=== PATIENT | male | born 1990 | race Caucasian/White ===

== ENCOUNTER 2017-06-15 21:20 | Emergency (ER) | payer OTHER ==
[2017-06-15] MEDS ORDERED: solu-MEDROL 125 MG IV ONE (21:29)
[2017-06-15] MEDS ORDERED: PROVENTIL 2.5 MG/3 ML NEB IH ONE ×2 (21:29→21:32)
[2017-06-15] MEDS ORDERED: Lactated Ringers 1,000 ML IV ONE ×3 (21:32→22:49)
[2017-06-15] MEDS ORDERED: ROCEPHIN 1 Gm-D5w 50 ml Bag** 1 G/50 ML IVPB IV STA (21:34)
[2017-06-15] MEDS ORDERED: Zithromax 500 MG/ 250 ML NaCl Premix 500 MG/250 ML IVPB IV STA (21:35)
--- NOTE | 2017-06-15 21:36 | ERPHSYRPT ---
- History of Present Illness Time Seen by Provider: 06/15/17 21:30 Source: patient Exam Limitations: clinical condition Patient Subjective Stated Complaint: shortness of breath x3-4 days; increasingly worse today; also states its hard to take a deep breath dt his chest feeling tight with inhalation Triage Nursing Assessment: pt ambulated to room per self; breathing slightly labored with activity; skin p, w, and d; a&o x3; no other distress noted at this time. Physician History: PATIENT WITH A HISTORY OF ASTHMA, COMPLAINS OF A PRODUCTIVE COUGH, YELLOW SPUTUM ASSOCIATED WITH DYSPNEA, DIFFICULTY BREATHING, OVER THE PAST 3 DAYS. UNSURE OF FEVER OR CHILLS. Timing/Duration: day(s) Activities at Onset: none Severity of Dyspnea-Max: moderate Severity of Dyspnea-Current: moderate Possible Cause: occasional episodes Modifying Factors: Improves With: coughing, exertion Associated Symptoms: cough, productive cough, tightness International travel in last 2 weeks: No Allergies/Adverse Reactions: egg Allergy (Verified 09/08/14 16:41) Horse/Equine Containing Products Allergy (Verified 09/08/14 16:41) Home Medications: Albuterol 2.5 mg/0.5 ml [PROVENTIL Solution 2.5 MG/0.5 ML] 1 neb IH Q4H PRN PRN 05/03/14 [History] Hx Tetanus, Diphtheria Vaccination/Date Given: No Hx Influenza Vaccination/Date Given: No Hx Pneumococcal Vaccination/Date Given: No Immunizations Up to Date: No - Review of Systems Constitutional: No Fever, No Chills Eyes: No Symptoms Ears, Nose, & Throat: No Symptoms Respiratory: Cough, Dyspnea, Dyspnea on Exertion (ABAD) Cardiac: No Symptoms, No Chest Pain, No Edema, No Syncope Abdominal/Gastrointestinal: No Symptoms, No Abdominal Pain, No Nausea, No Vomiting, No Diarrhea Genitourinary Symptoms: No Symptoms, No Dysuria Musculoskeletal: No Symptoms, No Back Pain, No Neck Pain Skin: No Rash Neurological: No Dizziness, No Focal Weakness, No Sensory Changes Psychological: No Symptoms Endocrine: No Symptoms All Other Systems: Reviewed and Negative - Past Medical History Pertinent Past Medical History: Yes Neurological History: No Pertinent History ENT History: No Pertinent History, Other Cardiac History: No Pertinent History Respiratory History: Asthma Endocrine Medical History: No Pertinent History Musculoskeletal History: Fractures GI Medical History: No Pertinent History History: No Pertinent History Psycho-Social History: No Pertinent History Male Reproductive Disorders: No Pertinent History Other Medical History: NASAL FRACTURE - Past Surgical History Past Surgical History: Yes Neuro Surgical History: No Pertinent History Cardiac: No Pertinent History Respiratory: No Pertinent History Gastrointestinal: No Pertinent History Genitourinary: No Pertinent History Musculoskeletal: No Pertinent History Male Surgical History: Testicular Surgery Other Surgical History: SHOULDER/NOSE - Social History Smoking Status: Never smoker Exposure to second hand smoke: No Drug Use: none Patient Lives Alone: No - Nursing Vital Signs Nursing Vital Signs: Initial Vital Signs Temperature 99 F 06/15/17 21:22 Pulse Rate 120 H 06/15/17 21:22 Respiratory Rate 24 06/15/17 21:22 Blood Pressure 147/106 06/15/17 21:22 O2 Sat by Pulse Oximetry 96 06/15/17 21:22 Pain Scale Pain Intensity 7 - Physical Exam General Appearance: mild distress, alert Eye Exam: PERRL/EOMI Neck Exam: normal inspection, supple Respiratory Exam: diminished breath sounds, wheezing (TERMINAL EXPIRATORY WHEEZES) Cardiovascular/Chest Exam: normal heart sounds, regular rate/rhythm Abdominal/Gastrointestinal Exam: soft, No tenderness, No distention, No mass Extremity Exam: non-tender, normal range of motion, normal inspection, no calf tenderness, no pedal edema Peripheral Pulses Exam: carotid (R): 2+, carotid (L): 2+, femoral (R): 2+, femoral (L): 2+, dorsalis-pedis (R): 2+, dorsalis-pedis (L): 2+ Neurologic Exam: alert, oriented x 3, cooperative, 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, sensation nml, No motor deficits Skin Exam: normal color, warm, No dry SpO2 Interpretation: normal SpO2: 96 Oxygen Delivery: Room Air - Course EKG Interpreted by Me: RATE, Sinus Rhythm, Sinus Tach, NORMAL AXIS - Radiology Exams Chest X-ray Interpretation: Discussed w/ radiologist, Negative, No Infiltrates Ordered Tests: Active Orders 24 hr Category Date Time Status Senior 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 Research Analyst STAT Care 06/15/17 21:33 Active EKG-ER Only STAT Care 06/15/17 21:33 Active CHEST 2 VIEWS (PA AND LAT) Stat Exams 06/15/17 21:30 Completed BLOOD CULTURE Stat Lab 06/15/17 21:50 Received CBC W DIFF Stat Lab 06/15/17 21:40 Completed Lactic Acid Stat Lab 06/15/17 21:40 Completed Manual Differential NC Stat Lab 06/15/17 21:40 Completed Peak Expiratory Flow Rate ONCE RT 06/15/17 21:29 Completed Respiratory Nebulizer STAT RT 06/15/17 21:31 Completed Medication Summary Generic Name Dose Route Start Last Admin Trade Name Freq PRN Reason Stop Dose Admin Lactated Ringer's 1,000 mls @ 999 mls/hr 06/15/17 22:00 06/15/17 22:37 Lactated Ringers IV 06/16/17 02:00 Not Given .Q1H1M KARYN Discontinued Medications Generic Name Dose Route Start Last Admin Trade Name Freq PRN Reason Stop Dose Admin Acetaminophen 975 mg 06/15/17 22:26 06/15/17 22:33 Tylenol 325 Mg PO 06/15/17 22:27 975 mg STAT STA Administration Acetaminophen Confirm 06/15/17 22:31 Tylenol 325 Mg Administered 06/15/17 22:32 Dose 975 mg .ROUTE .STK-MED ONE Albuterol Sulfate 10 mg 06/15/17 21:29 06/15/17 21:35 Proventil 2.5 Mg/3 Ml Neb IH 06/15/17 21:30 10 mg STAT ONE Administration Albuterol Sulfate Confirm 06/15/17 21:32 Proventil 2.5 Mg/3 Ml Neb Administered 06/15/17 21:33 Dose 10 mg IH .STK-MED ONE Lactated Ringer's 1,000 mls @ 999 mls/hr 06/15/17 21:32 06/15/17 21:48 Lactated Ringers IV 06/15/17 22:32 999 mls/hr .Q1H1M ONE Administration Ceftriaxone Sodium/Dextrose 1 g in 50 mls @ 100 mls/hr 06/15/17 21:34 23:39 Rocephin 1 Gm-D5w 50 Ml Bag IV 06/15/17 22:03 100 mls/hr STAT STA Administration Azithromycin 500 mg in 250 mls @ 250 mls/hr 06/15/17 21:35 06/15/17 22:27 Zithromax 500 Mg/ 250 Ml Nacl Premix IV 06/15/17 22:34 250 mls/hr STAT STA Administration Ceftriaxone Sodium/Dextrose Confirm 06/15/17 22:02 Rocephin 1 Gm-D5w 50 Ml Bag Administered 06/15/17 22:03 Dose 1 g in 50 mls @ ud IV .STK-MED ONE Azithromycin Confirm 06/15/17 22:25 Zithromax 500 Mg/ 250 Ml Nacl Premix Administered 06/15/17 22:26 Dose 500 mg in 250 mls @ ud IV .STK-MED ONE Lactated Ringer's 1,000 mls @ 999 mls/hr 06/15/17 22:49 Lactated Ringers IV 06/15/17 23:49 .Q1H1M ONE Methylprednisolone Sodium Succinate 125 mg 06/15/17 21:29 06/15/17 21:50 Solu-Medrol 125 Mg IV 06/15/17 21:30 125 mg STAT ONE Administration Methylprednisolone Sodium Succinate Confirm 06/15/17 21:45 Solu-Medrol 125 Mg Administered 06/15/17 21:46 Dose 125 mg .ROUTE .STK-MED ONE Lab/Rad Data: Laboratory Result Diagrams 06/15/17 21:40 Laboratory Results 06/15/17 06/15/17 06/15/17 Range/Units 22:05 21:40 21:40 WBC 13.3 H (4.0-10.5) K/mm3 RBC 5.75 H (4.1-5.6) M/mm3 Hgb 16.8 (12.5-18.0) gm/dl Hct 48.4 (42-50) % MCV 84.2 (78-100) fl MCH 29.2 (26-32) pg MCHC 34.7 (32-36) g/dl RDW 13.4 (11.5-14.0) % Plt Count 206 (150-450) K/mm3 MPV 11.2 H (6-9.5) fl Lactic Acid 1.2 (0.4-2.0) Influenza Type A Ag NEGATIVE (NEGATIVE) Influenza Type B Ag NEGATIVE (NEGATIVE) RSV (PCR) NEGATIVE (Negative) - Progress Progress: improved Progress Note: 06/16/17 00:05 PLACED ONTO SEPSIS PROTOCOL LR 1 LITER/HR, LACTATE NORMAL 1.2, TAKEN OFF SEPSIS PROTOCOL, ROCEPHIN 1GM, ZITHROMAX 500MG, SOLUMEDROL 125MG IV, ADMINISTERED ALBUTEROL 10MG AEROSOL OVER 1 HOUR. Blood Culture(s) Obtained: Yes Antibiotics given: Yes Counseled pt/family regarding: lab results, diagnosis, need for follow-up - Departure Time of Disposition: 00:15 Departure Disposition: Home (0010) Clinical Impression: ACUTE ASTHMATIC BRONCHITIS Condition: Stable Critical Care Time: No Referrals: ROMAINE GONZALEZ [Primary Care Provider] - Additional Instructions: CONTINUE ALBUTEROL AEROSOL TREATMENTS EVERY 3-4 HOURS NEEDED. ANTIBIOTIC OMNICEF 300MG TWICE DAILY FOR 10 DAYS. ZITHROMAX 500MG DAILY 3 DAYS. PREDNISONE 40MG DAILY FOR 5 DAYS. TAKE OVER THE COUNTER COUGH SYRUP EVERY 4 HOURS NEEDED. TYLENOL EVERY 4 HOURS FOR FEVER. CONSULT YOUR PRIMARY CARE PROVIDER FOR FOLLOWUP IN 1 WEEK. RETURN TO EMERGENCY FOR DIFFICULTY BREATHING. Prescriptions: Azithromycin [Zithromax Tri-Rik 500 mg] 500 mg PO DAILY #3 tablet Cefdinir [Omnicef 300 mg] 300 mg PO BID #20 capsule Prednisone 20 mg [Deltasone 20 mg] 40 mg PO DAILY #10 tablet
[2017-06-15] MEDS ORDERED: solu-MEDROL 125 MG ONE (21:45)
[2017-06-15 21:54] LABS: Hematocrit 48.4 % (42-50); Hemoglobin 16.8 gm/dl (12.5-18.0); Mean Cell Volume 84.2 fl (78-100); Mean Corpuscular Hemoglobin 29.2 pg (26-32); Mean Corpuscular Hgb Concent. 34.7 g/dl (32-36); Mean Platelet Volume 11.2 fl (6-9.5); Platelet Count 206 K/mm3 (150-450); Red Blood Count 5.75 M/mm3 (4.1-5.6); Red Cell Distribution Width 13.4 % (11.5-14.0); White Blood Count 13.3 K/mm3 (4.0-10.5)
[2017-06-15] MEDS ORDERED: Lactated Ringers 1,000 ML IV SCH (22:00)
[2017-06-15] MEDS ORDERED: ROCEPHIN 1 Gm-D5w 50 ml Bag** 1 G/50 ML IVPB IV ONE (22:02)
[2017-06-15] MEDS ORDERED: Zithromax 500 MG/ 250 ML NaCl Premix 500 MG/250 ML IVPB IV ONE (22:25)
[2017-06-15] MEDS ORDERED: TYLENOL 325 MG PO STA (22:26)
[2017-06-15] MEDS ORDERED: TYLENOL 325 MG ONE (22:31)
[2017-06-15 22:59] LABS: INFLUENZA A NEGATIVE (NEGATIVE); INFLUENZA B NEGATIVE (NEGATIVE)
[2017-06-15 23:00] LABS: RESPIRATORY SYNCTIAL VIRUS NEGATIVE (Negative)
--- NOTE | 2017-06-15 23:55 | XRAY ---
Indication: Cough and dyspnea. Asthma. Comparison: May 03, 2014. PA/lateral chest again hyperinflated with a few incidental calcified granulomas. No focal infiltrate, consolidation, or large effusion. Heart is not enlarged. Bony thorax intact. Impression: Stable nonacute hyperinflated chest with chronic feature.
[2017-06-16 00:26] VITALS: BP 116/70; PULSE 88; O2SAT 97
[2017-06-16 04:44] LABS: Eosinophil 3 % (0.00-3.0); Lymphocytes 9 % (24-44); Monocyte 7 % (0.0-12.0); Neutrophils 81 % (36.-66.); Platelet Estimate NORMAL (NORMAL); Total Cells Counted 100
== END 2017-06-16 00:29 | disposition home or self-care (01) ==
LOC: ED 21:20
DX: J45.909 Unspecified asthma, uncomplicated (principal)
CPT/HCPCS: 36415; 71046; 83605; 85025; 87040; 87631; 93005; 93041; 94150; 94640; 96360; 96365; 96366; 96375; 99284; J0456; J0696; J2930; A9270-GY

== ENCOUNTER 2018-08-06 16:19 | Emergency (ER) | payer OTHER ==
--- NOTE | 2018-08-06 16:51 | XRAY ---
Indication: 1st/2nd metacarpal laceration. Comparison: None 2 views of the right hand demonstrates mild soft tissue swelling over 2nd MCP. No other bony, articular, or soft tissue abnormalities.
[2018-08-06] MEDS ORDERED: XYLOCAINE 1%/Epi 1:100000 MDV 20 ML ONE (16:54)
[2018-08-06] MEDS ORDERED: Adacel Vial IM ONE (17:06)
[2018-08-06] MEDS ORDERED: BACIGUENT PACKET TP ONE (17:25)
[2018-08-06] MEDS ORDERED: BACIGUENT PACKET ONE (17:26)
--- NOTE | 2018-08-06 17:31 | ERPHSYRPT ---
- History of Present Illness Source: patient Exam Limitations: no limitations Patient Subjective Stated Complaint: states hit a metal bat with lawnmower arrived with dressing to right hand. lac to palmar aspect of index finger.. actively bleeding. Triage Nursing Assessment: laceration to palmar aspect of index finger .. cut on metal bat with a lawnmower. active bleeding. md at bedside to assess laceration prior to redressing.. pressure dressing placed. + cap refill. 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 Pt has laceration and bleeding. He is able to move all his fingers, and sensation is intact. Pt denies F/C/S. No SOB or cough. No N/V/D or abdominal pain. Timing/Duration: today Quality: burning, painful Location: hands Possible Causes: no cause identified (accident at work) Modifying Factors: Improves With: other (pain control) Allergies/Adverse Reactions: egg Allergy (Verified 08/06/18 16:39) Horse/Equine Containing Products Allergy (Verified 08/06/18 16:39) Home Medications: Albuterol 2.5 mg/0.5 ml [PROVENTIL Solution 2.5 MG/0.5 ML] 1 neb IH Q4H PRN PRN 05/03/14 [History] Cyclobenzaprine HCl 10 mg [Cyclobenzaprine 10 MG] 10 mg PO Q6H PRN PRN [History] Fluticasone Propionate [Flonase NASAL] 16 gm NS DAILY 08/06/18 [History] Hx Tetanus, Diphtheria Vaccination/Date Given: No Hx Influenza Vaccination/Date Given: No Hx Pneumococcal Vaccination/Date Given: No Immunizations Up to Date: (unknown) - Review of Systems Constitutional: No Fever, No Chills Eyes: No Symptoms Ears, Nose, & Throat: No Symptoms Respiratory: No Cough, No Dyspnea Cardiac: No Chest Pain, No Edema, No Syncope Abdominal/Gastrointestinal: No Abdominal Pain, No Nausea, No Vomiting, No Diarrhea Skin: Other (laceration on the palm of the R hand. Pain and bleeding.) - Past Medical History Pertinent Past Medical History: Yes Neurological History: No Pertinent History ENT History: No Pertinent History, Other Cardiac History: No Pertinent History Respiratory History: Asthma Endocrine Medical History: No Pertinent History Musculoskeletal History: Fractures GI Medical History: No Pertinent History History: No Pertinent History Psycho-Social History: No Pertinent History Male Reproductive Disorders: No Pertinent History Other Medical History: NASAL FRACTURE - Past Surgical History Past Surgical History: Yes Neuro Surgical History: No Pertinent History Cardiac: No Pertinent History Respiratory: No Pertinent History Gastrointestinal: No Pertinent History Genitourinary: No Pertinent History Musculoskeletal: No Pertinent History Male Surgical History: Testicular Surgery Other Surgical History: SHOULDER/NOSE - Social History Smoking Status: Never smoker Exposure to second hand smoke: No Drug Use: none Patient Lives Alone: No - Nursing Vital Signs Nursing Vital Signs: Initial Vital Signs Pulse Rate 111 H 08/06/18 16:27 Respiratory Rate 18 08/06/18 16:27 Blood Pressure 150/97 08/06/18 16:27 O2 Sat by Pulse Oximetry 96 08/06/18 16:27 Pain Scale Pain Intensity 0 - Physical Exam General Appearance: no apparent distress, alert Extremity Exam: normal inspection, normal range of motion Neurologic Exam: alert, oriented x 3, cooperative, normal mood/affect, sensation nml, No motor deficits Skin Exam: laceration (3cm deep laceration. No injury to tendons or nerves.) SpO2: 98 Procedures - Laceration/Wound Repair Right Upper Anterior Hand Wound Location: Right, hand Wound Length (cm): 3 Wound's Depth, Shape: into muscle Wound Explored: contaminated Irrigated: Yes Hibiclens Prep: Yes Anesthesia: 1% lidocaine w/ Epi Volume Anesthetic (ccs): 5 Wound Debrided: minimal Wound Repaired With: sutures Suture Size/Type: 3-0, prolene Number of Sutures: 4 Sterile Dressing Applied?: No Splint Applied?: No - Course Nursing assessment & vital signs reviewed: Yes - Radiology Exams Right Hand X-ray Interpretation: Negative (mild soft tissue swelling. No bony, articular, or soft tissue abnormalities.) Ordered Tests: Active Orders 24 hr Category Date Time Status HAND (2 VIEW) Stat Exams 08/06/18 16:45 Completed Medication Summary Discontinued Medications Generic Name Dose Route Start Last Admin Trade Name Freq PRN Reason Stop Dose Admin Bacitracin Zinc 0.9 gm 08/06/18 17:25 08/06/18 17:25 Baciguent Packet TP 08/06/18 17:26 0.9 gm STAT ONE Administration Diphtheria/Tetanus/Acell Pertussis Confirm 08/06/18 17:06 Adacel Vial Administered 08/06/18 17:07 Dose 0.5 ml IM .STK-MED ONE Lidocaine/Epinephrine Confirm 08/06/18 16:54 Xylocaine 1%/Epi [id number] Mdv 20 Ml Administered 08/06/18 16:55 Dose 1 ml .ROUTE .STK-MED ONE - Progress Progress: improved Progress Note: 08/06/18 17:36 Pt's hand and wound was cleaned with hibiclens. The area was numbed with lido1 % with Epi, and 4 sutures were placed in the laceration. I used 3-0 Prolene. Pt tolerated the procedure well. The hand was cleaned well and ATB oint placed and the hand was dressed. Pt was instructed to keep the hand dry and cleaned, and f/u with PCP in 7-10 days for removal of sutures. Pt refused Adacel vaccine. He has no allergies for ABX, and Augmentin will be prescribed. F/U with PCP. I will prescribe low quantity on [place] for pain. Will see patient in: office Counseled pt/family regarding: need for follow-up - Departure Departure Disposition: Home Clinical Impression: Laceration of right hand Condition: Stable Critical Care Time: No Referrals: LOLY PETTY ASSISTANT ANALYST [Primary Care Provider] - Instructions: Laceration Repair With Stitches (DC) Additional Instructions: F/U with PCP in 7-10 days to remove sutures. Keep the dressing clean and dry. Do not drive when you are taking the [place]. Finish ABX as prescribed. Prescriptions: Amox Tr/Potass Clav. 875 mg [Augmentin 875-125 Tablet] 1 each PO BID 7 Days #14 tablet Hydrocodone/APAP 5-325 Tab^^^ [[place] 5-325 Tablet^^^] 1 each PO Q6H PRN #16 tablet MDD 6 PRN Reason: Pain
[2018-08-06] MEDS ORDERED: XYLOCAINE 1%/Epi 1:100000 MDV 20 ML IJ ONE ×2 (17:36→17:46)
[2018-08-06 17:52] VITALS: BP 117/72; PULSE 88; O2SAT 97
== END 2018-08-06 17:51 | disposition home or self-care (01) ==
LOC: ED 16:19
DX: S61.411A Laceration without foreign body of right hand, initial encounter (principal)
CPT/HCPCS: 12002; 73120; 90715; 96372; 99284; A9270-GY

== ENCOUNTER 2019-07-09 16:51 | Emergency (ER) | payer OTHER ==
--- NOTE | 2019-07-09 17:04 | ERPHSYRPT ---
- History of Present Illness Time Seen by Provider: 07/09/19 17:03 Source: patient Exam Limitations: no limitations Physician History: Patient is a 28-year-old male who presents with a complaint of back pain. He fell 3 to 4 years ago about 20 feet from a ladder has had back problems since that time it does flare occasionally he awoke with low back pain this morning after stepping out of bed onto his right leg pain is in the right lower back and radiates down the right leg he has no bowel or bladder problems he is been in physical therapy for 2-1/2 weeks. Timing/Duration: today Method of Injury: fall Quality: sharp, stabbing, throbbing Back Pain Location: lumbar spine Back Pain Radiation: upper legs Severity of Pain-Max: severe Severity of Pain-Current: severe Modifying Factors: Improves With: nothing Associated Symptoms: denies symptoms Previous symptoms: same symptoms as today Allergies/Adverse Reactions: egg Allergy (Verified 07/09/19 17:10) Horse/Equine Containing Products Allergy (Verified 07/09/19 17:10) Home Medications: Albuterol 2.5 mg/0.5 ml [PROVENTIL Solution 2.5 MG/0.5 ML] 1 neb IH Q4H PRN PRN 05/03/14 [History] Fluticasone Propionate [Flonase NASAL] 2 inh NS DAILY 08/06/18 [History] Albuterol Sulfate [Albuterol Sulfate Hfa] 1 inh PO UD 07/09/19 [History] Budesonide/Formoterol Fumarate [Budesonide-Formoterol 160-4.5] 1 inh PO BID 04/28 [History] Tiotropium [place] [Spiriva Respimat] 2 inh PO DAILY 07/09/19 [History] Hx Tetanus, Diphtheria Vaccination/Date Given: No Hx Influenza Vaccination/Date Given: No Hx Pneumococcal Vaccination/Date Given: No Travel Risk - International Travel Have you traveled outside of the country in past 3 weeks: No Have you or anyone close to you been diagnosed with or: No Do your reside in a community with a known COVID-19 case?: No - Coronavirus Screening Has patient experienced Coronavirus symptoms: No - Review of Systems Constitutional: No Fever, No Chills Eyes: No Symptoms Ears, Nose, & Throat: No Symptoms Respiratory: No Cough, No Dyspnea Cardiac: No Chest Pain, No Edema, No Syncope Abdominal/Gastrointestinal: No Abdominal Pain, No Nausea, No Vomiting, No Diarrhea Genitourinary Symptoms: No Dysuria Musculoskeletal: Back Pain, Fall, Joint Pain, No Neck Pain Skin: No Rash Neurological: No Dizziness, No Focal Weakness, No Sensory Changes Psychological: No Symptoms Endocrine: No Symptoms All Other Systems: Reviewed and Negative - Past Medical History Pertinent Past Medical History: Yes Neurological History: No Pertinent History ENT History: No Pertinent History, Other Cardiac History: Other Respiratory History: Asthma Endocrine Medical History: No Pertinent History Musculoskeletal History: Fractures GI Medical History: No Pertinent History History: No Pertinent History Psycho-Social History: No Pertinent History Male Reproductive Disorders: No Pertinent History Other Medical History: HX OF RIGHT SHOULDER SURGERY FOR TORN LABRUM, ROTATOR CUFF TEAR AND BONE SPUR REMOVAL 2008. RECENTLY DX'D WITH ARTHRITIS IN THE SHOULDER AND IS SUPPOSED TO HAVE THERAPY. HEART MURMUR - Past Surgical History Past Surgical History: Yes Neuro Surgical History: No Pertinent History Cardiac: No Pertinent History Respiratory: No Pertinent History Gastrointestinal: No Pertinent History Genitourinary: No Pertinent History Musculoskeletal: No Pertinent History Male Surgical History: Testicular Surgery Other Surgical History: SHOULDER/NOSE - Social History Smoking Status: Never smoker Exposure to second hand smoke: No Drug Use: none Patient Lives Alone: No - Nursing Vital Signs Nursing Vital Signs: Initial Vital Signs Temperature 99.0 F 07/09/19 16:54 Pulse Rate 72 07/09/19 16:54 Blood Pressure 158/89 07/09/19 16:54 O2 Sat by Pulse Oximetry 96 07/09/19 16:54 Pain Scale Pain Intensity [Posterior 3 Medial Distal Back] Pain Intensity 4 - Physical Exam General Appearance: no apparent distress, alert Eye Exam: PERRL/EOMI, eyes nml inspection Neck Exam: normal inspection, non-tender, supple, full range of motion, No meningismus, No midline tenderness Respiratory Exam: normal breath sounds, lungs clear, No respiratory distress Cardiovascular Exam: regular rate/rhythm, normal heart sounds Gastrointestinal Exam: soft, No tenderness, No mass Back Exam: normal inspection, vertebral tenderness, muscle spasm, point tenderness Extremity Exam: normal inspection, normal range of motion, No calf tenderness, No pedal edema Neurologic Exam: alert, oriented x 3, cooperative, fuse cup expander II-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 Also some mild degenerative disc disease and bulging at L5-S1. RI is recommended) Ordered Tests: Active Orders 24 hr Category Date Time Status LUMBAR SPINE W/O [CT] Stat Exams 07/09/19 17:10 Taken - Progress Progress: improved - Departure Departure Disposition: Home Clinical Impression: Lumbar radiculopathy, Spinal stenosis at L4-L5 level Condition: Stable Critical Care Time: No Referrals: LISSETT SEARS [Primary Care Provider] - Instructions: Low Back Pain (DC) Prescriptions: Hydrocodone/APAP 5-325 Tab^^^ [[place] 5-325 Tablet^^^] 1 tab PO Q6HPRN PRN #10 tablet MDD 6 PRN Reason: Pain Diclofenac Sodium 50 mg [Voltaren 50 mg] 50 mg PO TID 10 Days #30 tablet.ec Prednisone 10 mg [Deltasone 10 mg] 40 mg PO DAILY #12 tablet
[2019-07-09 18:21] VITALS: O2SAT 98
[2019-07-09] MEDS ORDERED: TORAdol 30 mg Injection IM ONE (18:51)
[2019-07-09] MEDS ORDERED: TORAdol 30 mg Injection ONE (18:54)
[2019-07-09 19:38] VITALS: BP 140/90; PULSE 71
--- NOTE | 2019-07-10 08:48 | XRAY ---
Indication: Back pain. No known injury. Multiple contiguous axial images obtained through the lumbar spine. Two-dimensional sagittal and coronal reformatted images obtained. Comparison: None No acute fracture or suspicious bony lesions. Tiny T12-L1 Schmorl nodes. The T12-L4 disc levels are negative for large disc herniation or spinal canal stenosis. At the L4-L5 level, there is mild broad-based left paracentral subligamentous disc herniation effacing the thecal sac and producing left foraminal stenosis and right foraminal narrowing. At the L5-S1 level, there is mild right base central disc osteophyte complex without spinal canal or foraminal compromise. Sagittal and coronal reformatted images demonstrate normal lumbar lordosis with mild L5-S1 disc space narrowing. No acute compression fracture or subluxation. Visualized noncontrasted soft tissues are unremarkable. Impression: 1. L4-L5 left paracentral broad-based subligamentous disc herniation with subsequent spinal canal narrowing, left foraminal stenosis, and right foraminal narrowing. Outpatient MRI lumbar spine may yield further information. 2. Incidental L5-S1 degenerative disc bulge and tiny T12-L1 Schmorl nodes.
== END 2019-07-09 19:38 | disposition home or self-care (01) ==
LOC: ED 16:51
DX: M54.16 Radiculopathy, lumbar region (principal); M48.061 Spinal stenosis, lumbar region without neurogenic claudication
CPT/HCPCS: 72131; 96372; 99284; J1885

== ENCOUNTER 2020-02-01 23:13 | Emergency (ER) | payer OTHER ==
[2020-02-01] MEDS ORDERED: BENADRYL 50 MG/ML IM ONE (23:22)
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
[2020-02-01] MEDS ORDERED: DECADRON 10MG INJ. IM ONE (23:23)
[2020-02-01] MEDS ORDERED: DECADRON 10MG INJ. ONE (23:28)
[2020-02-01] MEDS ORDERED: BENADRYL 50 MG/ML ONE (23:28)
[2020-02-01 23:36] VITALS: O2SAT 95
[2020-02-01 23:52] VITALS: BP 136/84; PULSE 96
== END 2020-02-01 23:55 | disposition home or self-care (01) ==
LOC: ED 23:13
DX: L23.6 Allergic contact dermatitis due to food in contact with the skin (principal)
CPT/HCPCS: 96372; 99284; J1100; J1200

== ENCOUNTER 2020-04-13 17:16 | Emergency (ER) | payer OTHER ==
--- NOTE | 2020-04-13 18:08 | ERPHSYRPT ---
- History of Present Illness Time Seen by Provider: 04/13/20 17:20 Source: patient, EMS Exam Limitations: no limitations Patient Subjective Stated Complaint: PT states "I have intermittant pain on my tailbone and down my left leg. I have an appointment with pain management next week but I cannot wait anymore." Triage Nursing Assessment: Pt presented alert and oriented X 3, skin pwd pt able to stand, pt spasms when he moves his legs. Pt in no apparent respiratory distres. Physician History: This is a 29-year-old white male who has pain in his lower back and tailbone area. He did fall approximately 1 week ago. He is scheduled to see his pain specialist next week . He states that the pain was worse today and feels like his usual sciatica that shoots down his right leg. Patient has no loss of urinary or bowel function. Patient took a Flexeril approximately 1 hour prior to coming to the hospital. He denies taking any other medication for pain or sedation. Occurred: other (Neck intermittent but patient fell 1 week ago) Reason for Fall: slipped Injuries/Pain Location: back, lower Loss of Consciousness: no loss of consciousness Quality: sharpness, stabbing Severity of Pain-Max: moderate Severity of Pain-Current: moderate Modifying Factors: Improves With: movement Associated Symptoms (Fall): denies symptoms Allergies/Adverse Reactions: egg Allergy (Verified 02/01/20 23:37) Horse/Equine Containing Products Allergy (Verified 02/01/20 23:37) Home Medications: Albuterol 2.5 mg/0.5 ml [PROVENTIL Solution 2.5 MG/0.5 ML] 1 neb IH Q4H PRN PRN 05/03/14 [History] Fluticasone Propionate [Flonase NASAL] 2 inh NS DAILY 08/06/18 [History] Albuterol Sulfate [Albuterol Sulfate Hfa] 1 inh PO UD 07/09/19 [History] Budesonide/Formoterol Fumarate [Budesonide-Formoterol 160-4.5] 1 inh PO BID 07/09/19 [History] Tiotropium [place] [Spiriva Respimat] 2 inh PO DAILY 07/09/19 [History] Hx Tetanus, Diphtheria Vaccination/Date Given: No Hx Influenza Vaccination/Date Given: No Hx Pneumococcal Vaccination/Date Given: No Immunizations Up to Date: Yes Travel Risk - International Travel Have you traveled outside of the country in past 3 weeks: No - Coronavirus Screening Are you exhibiting any of the following symptoms?: No Close contact with a COVID-19 positive Pt in past 14-21 Days: No - Review of Systems Constitutional: No Symptoms Eyes: No Symptoms Ears, Nose, & Throat: No Symptoms Respiratory: No Symptoms Cardiac: No Symptoms Abdominal/Gastrointestinal: No Symptoms Genitourinary Symptoms: No Symptoms Musculoskeletal: Back Pain (Low back and tailbone pain that radiates down the right leg) Skin: No Symptoms Neurological: No Symptoms Psychological: No Symptoms Endocrine: No Symptoms Hematologic/Lymphatic: No Symptoms Immunological/Allergic: No Symptoms All Other Systems: Reviewed and Negative - Past Medical History Pertinent Past Medical History: Yes Neurological History: No Pertinent History ENT History: No Pertinent History, Other Cardiac History: Other Respiratory History: Asthma Endocrine Medical History: No Pertinent History Musculoskeletal History: Fractures GI Medical History: No Pertinent History History: No Pertinent History Psycho-Social History: No Pertinent History Male Reproductive Disorders: No Pertinent History Other Medical History: HX OF RIGHT SHOULDER SURGERY FOR TORN LABRUM, ROTATOR CUFF TEAR AND BONE SPUR REMOVAL 2008. RECENTLY DX'D WITH ARTHRITIS IN THE SHOULDER AND IS SUPPOSED TO HAVE THERAPY. HEART MURMUR - Past Surgical History Past Surgical History: Yes Neuro Surgical History: No Pertinent History Cardiac: No Pertinent History Respiratory: No Pertinent History Gastrointestinal: No Pertinent History Genitourinary: No Pertinent History Musculoskeletal: No Pertinent History Male Surgical History: Testicular Surgery Other Surgical History: SHOULDER/NOSE - Social History Smoking Status: Never smoker Exposure to second hand smoke: Yes Drug Use: none Patient Lives Alone: No - Nursing Vital Signs Nursing Vital Signs: Initial Vital Signs Temperature 98.4 F 04/13/20 17:18 Pulse Rate 83 04/13/20 17:18 Respiratory Rate 20 04/13/20 17:18 Blood Pressure 169/94 04/13/20 17:18 O2 Sat by Pulse Oximetry 98 04/13/20 17:18 Pain Scale Pain Intensity 8 - Jj Coma Score Best Eye Response (Jj): (4) open spontaneously Best Verbal Response ([place]): (5) oriented Best Motor Response ([place]): (6) obeys commands Jj Total: 15 - Physical Exam General Appearance: no apparent distress, alert, anxiety Head Injury: no evidence of injury Eye Exam: PERRL/EOMI, eyes nml inspection ENT Exam: airway nml Neck Exam: supple, trachea midline, full range of motion, normal alignment, normal inspection Respiratory/Chest Exam: No chest tenderness, No respiratory distress Gastrointestinal Exam: No tenderness Rectal Exam: not done Back Exam: normal inspection, decreased range of motion, muscle spasm, No CVA tenderness Extremity Exam: normal inspection, normal range of motion, pelvis stable Neurologic Exam: alert, oriented x 3, 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 Counseled pt/family regarding: diagnosis, need for follow-up, rad results - Departure Departure Disposition: Home Clinical Impression: Sciatica Condition: Stable Critical Care Time: No Referrals: LISSETT SEARS [Primary Care Provider] - Additional Instructions: Take medication as prescribed. Follow-up with your pain specialist as scheduled appointment time. Prescriptions: Carisoprodol 350 mg [Soma 350 mg] 350 mg PO Q8H PRN PRN #10 tablet PRN Reason: Muscle Spasms Prednisone 10 mg [Deltasone 10 mg] 10 mg PO TID #12 tablet
[2020-04-13] MEDS ORDERED: MORPHINE SULFATE 2 MG INJ IM ONE (18:30)
[2020-04-13] MEDS ORDERED: ZOFRAN ODT 4 MG PO ONE (18:31)
[2020-04-13] MEDS ORDERED: Ativan 2 MG/1 ML VIAL IM ONE (18:33)
[2020-04-13] MEDS ORDERED: solu-MEDROL 125 MG IM ONE (18:34)
[2020-04-13] MEDS ORDERED: ZOFRAN ODT 4 MG ONE (18:57)
[2020-04-13] MEDS ORDERED: MORPHINE SULFATE 2 MG INJ ONE (18:57)
[2020-04-13] MEDS ORDERED: solu-MEDROL 125 MG ONE (18:57)
[2020-04-13] MEDS ORDERED: Ativan 2 MG/1 ML VIAL ONE (18:57)
[2020-04-13 19:21] VITALS: BP 145/92; PULSE 92; O2SAT 99
--- NOTE | 2020-04-14 08:40 | XRAY ---
Indication: Low back pain. Comparison: CT lumbar spine July 09, 2019. 3 view lumbar spine demonstrates stable normal lumbar alignment with minimal L5-S1 disc space narrowing and T12/L1 transitional segments. No new/acute bony, articular, or soft tissue abnormalities.
== END 2020-04-13 19:45 | disposition home or self-care (01) ==
LOC: ED 17:16
DX: M54.32 Sciatica, left side (principal)
CPT/HCPCS: 72100; 96372; 99284; J2060; J2270; J2930; Q0162

== ENCOUNTER 2020-06-09 11:20 | Day surgery (SDC) | payer OTHER ==
[2020-06-09] MEDS ORDERED: Decadron 4 MG INJ IV ONE (11:21)
[2020-06-09] MEDS ORDERED: Xylocaine 1% Vial 30 ML PF IJ ONE (11:21)
[2020-06-09] MEDS ORDERED: Ketamine HCl 50 MG/ML ONE (13:36)
[2020-06-09] MEDS ORDERED: DIPRIVAN 200 MG/20 ML IV ONE ×2 (13:36→13:41)
[2020-06-09] MEDS ORDERED: Lactated Ringers 1,000 ML IV ONE (15:06)
--- NOTE | 2020-06-09 15:12 | XRAY ---
Indication: Left piriformis muscle injection. Intraoperative fluoroscopy provided for 24 seconds. Single digital spot images obtained prone demonstrates posterior needle tip projecting over the expected left piriformis muscle. Small amount of contrast injected for needle tip placement. Correlate with intraoperative findings/report.
--- NOTE | 2020-06-09 15:17 | XRAY ---
24 seconds fluoroscopy time in surgery for injection of the left piriformis muscle.
== END 2020-06-09 14:04 | disposition home or self-care (01) ==
LOC: SDC-PAIN 11:20
PROVIDERS: ATTEND Psychiatry & Neurology Pain Medicine
DX: M79.18 Myalgia, other site (principal); J45.909 Unspecified asthma, uncomplicated; F43.10 Post-traumatic stress disorder, unspecified; J32.9 Chronic sinusitis, unspecified; F32.9 Major depressive disorder, single episode, unspecified; F41.9 Anxiety disorder, unspecified; M19.90 Unspecified osteoarthritis, unspecified site; Z79.899 Other long term (current) drug therapy
CPT/HCPCS: 20552; 72020; 77002; J1100; J2001; J2704; Q9966

== ENCOUNTER 2020-10-27 14:33 | Day surgery (SDC) | payer OTHER ==
[2020-10-27] MEDS ORDERED: Depo-Medrol 40 MG/ML IM ONE (14:34)
[2020-10-27] MEDS ORDERED: LIDOCAINE HCL 2% 100 MG/5 ML IJ ONE (14:34)
[2020-10-27] MEDS ORDERED: DIPRIVAN 200 MG/20 ML IV ONE ×2 (15:53→15:58)
[2020-10-27] MEDS ORDERED: Lactated Ringers 1,000 ML IV ONE (15:57)
--- NOTE | 2020-10-27 16:54 | XRAY ---
27 seconds fluoroscopy time in surgery for left L3-S1 MBB.
--- NOTE | 2020-10-27 17:00 | XRAY ---
Indication: Left L3-S1 MBB. Intraoperative fluoroscopy provided for 27 seconds. Single digital spot image submitted for interpretation demonstrates posterior needle tips projecting over the expected left L3-S1 nerve roots. Correlate with intraoperative findings/report.
== END 2020-10-27 16:21 | disposition home or self-care (01) ==
LOC: SDC-PAIN 14:33
PROVIDERS: ATTEND Psychiatry & Neurology Pain Medicine
DX: M47.816 Spondylosis without myelopathy or radiculopathy, lumbar region (principal); Z79.899 Other long term (current) drug therapy
CPT/HCPCS: 64493; 64494; 64495; 72020; 77002; J1030; J2704

== ENCOUNTER 2021-01-04 20:40 | Emergency (ER) | payer OTHER ==
[2021-01-04] MEDS ORDERED: TORAdol 30 mg Injection IM ONE (21:10)
[2021-01-04] MEDS ORDERED: TORAdol 30 mg Injection ONE (21:12)
[2021-01-04 22:04] VITALS: BP 132/84; PULSE 78
--- NOTE | 2021-01-04 22:05 | ERPHSYRPT ---
- History of Present Illness Time Seen by Provider: 01/04/21 21:00 Source: patient Exam Limitations: no limitations Patient Subjective Stated Complaint: pt states "I fell backwards out of the computer chair and landed on my shoulder." Triage Nursing Assessment: pt ambulated into the er; pt is axo x4; c/o rt shoulder pain; pt states that he fell out of a chair and landed on his rt shoulder; pt states that he hears popping with movenment; pt is holding rt shoulder; pt states he has hx of dislocation of rt shoulder; pt states 3/10 pain to rt shoulder; pt states that pain radiates to rt hand; good cap refill to RUE; strong rt radial pulse; limited ROM to RUE; vitals wnl Physician History: Patient is a 30-year-old male presents to our ED with right-sided shoulder pain. Patient states he fell off of his computer chair onto his right shoulder. Injury occurred just prior to arrival. Patient describes a ache to his right shoulder. Pain worse with movement and palpation. Pain improved with rest. No other injuries. No BHT or LOC. No neck pain. Cervical spine cleared clinically. The fall was mechanical. The fall was not associated with any neuro cardiovascular symptomology. No chest pain or shortness of breath. No nausea vomiting or diaphoresis. No numbness tingling or weakness. Patient's pain is localized. No radiation. Patient voices no other complaints concerns at this time. Occurred: just prior to arrival Method of Injury: fell Quality: constant Severity of Pain-Max: moderate Severity of Pain-Current: mild Extremities Pain Location: shoulder: right Modifying Factors: Improves With: movement Associated Symptoms: none Allergies/Adverse Reactions: egg Allergy (Verified 01/04/21 20:55) Horse/Equine Containing Products Allergy (Verified 01/04/21 20:55) nylon Allergy (Verified 01/04/21 20:56) Blisters Home Medications: Albuterol 2.5 mg/0.5 ml [PROVENTIL Solution 2.5 MG/0.5 ML] 1 neb IH Q4H PRN PRN 05/03/14 [History] Fluticasone Propionate [Flonase NASAL] 2 inh NS DAILY 08/06/18 [History] Albuterol Sulfate [Albuterol Sulfate Hfa] 1 inh PO UD 07/09/19 [History] Budesonide/Formoterol Fumarate [Budesonide-Formoterol 160-4.5] 1 inh PO BID 07/09/19 [History] Tiotropium [place] [Spiriva Respimat] 2 inh PO DAILY 07/09/19 [History] Hx Tetanus, Diphtheria Vaccination/Date Given: Yes Hx Influenza Vaccination/Date Given: No Hx Pneumococcal Vaccination/Date Given: No Travel Risk - International Travel Have you traveled outside of the country in past 3 weeks: No - Coronavirus Screening Are you exhibiting any of the following symptoms?: Yes Symptoms: Vomiting/Diarrhea, Headaches/Body Aches/Fatigue Close contact with a COVID-19 positive Pt in past 14-21 Days: No - Vaccine Status Have you recieved a Covid-19 vaccination: No - Review of Systems Constitutional: No Symptoms, No Fever, No Chills Eyes: No Symptoms Ears, Nose, & Throat: No Symptoms Respiratory: No Symptoms, No Cough, No Dyspnea Cardiac: No Symptoms, No Chest Pain, No Edema, No Syncope Abdominal/Gastrointestinal: No Symptoms, No Abdominal Pain, No Nausea, No Vomiting, No Diarrhea Genitourinary Symptoms: No Symptoms, No Dysuria Musculoskeletal: No Symptoms, No Back Pain, No Neck Pain Skin: No Symptoms, No Rash Neurological: No Symptoms, No Dizziness, No Focal Weakness, No Sensory Changes Psychological: No Symptoms Endocrine: No Symptoms Hematologic/Lymphatic: No Symptoms Immunological/Allergic: No Symptoms All Other Systems: Reviewed and Negative - Past Medical History Pertinent Past Medical History: Yes Neurological History: No Pertinent History ENT History: No Pertinent History, Other Cardiac History: Other Respiratory History: Asthma, Other Endocrine Medical History: No Pertinent History Musculoskeletal History: Fractures GI Medical History: No Pertinent History History: No Pertinent History Psycho-Social History: Depression Male Reproductive Disorders: No Pertinent History Other Medical History: HAD COVID THIS PAST YEAR AND REPORTS NO CHANGE IN ASTH MA/RESPIRATORY ISSUES. HX OF HEART MURMUR. SX HX: RIGHT SHOULDER ROTATOR CUFF AND LABRAL REPAIR 2007, SINUS SURGERY 2006:PTSD - Past Surgical History Past Surgical History: Yes Neuro Surgical History: No Pertinent History Cardiac: No Pertinent History Respiratory: No Pertinent History Gastrointestinal: No Pertinent History Genitourinary: No Pertinent History Musculoskeletal: No Pertinent History Male Surgical History: Testicular Surgery Other Surgical History: SHOULDER/NOSE - Social History Smoking Status: Never smoker Exposure to second hand smoke: Yes Drug Use: none Patient Lives Alone: No - Nursing Vital Signs Nursing Vital Signs: Initial Vital Signs Pulse Rate 85 01/04/21 20:56 Respiratory Rate 24 01/04/21 20:56 Blood Pressure 130/85 01/04/21 20:56 O2 Sat by Pulse Oximetry 97 01/04/21 20:56 Pain Scale Pain Intensity 3 - Physical Exam General Appearance: no apparent distress, alert Eyes, Ears, Nose, Throat Exam: normal ENT inspection, TMs normal, pharynx normal, moist mucous membranes Neck Exam: normal inspection, non-tender, supple, full range of motion Cardiovascular/Respiratory Exam: chest non-tender, normal breath sounds, regular rate/rhythm, no respiratory distress Abdominal Exam: non-tender, soft, No no hernia, No guarding Back Exam: normal inspection, normal range of motion, No CVA tenderness, No vertebral tenderness Shoulder Exam: normal ROM (Normal active range of motion right shoulder. Patient is able to reach across to the contralateral side with his right arm and touch his left shoulder. ) Elbow/Forearm Exam: normal inspection, non-tender, no evidence of injury, normal ROM Wrist Exam: normal inspection, non-tender, no evidence of injury, normal ROM Hand Exam: normal inspection, non-tender, no evidence of injury, normal ROM Neuro/Tendon Exam: normal sensation, normal motor functions Mental Status Exam: alert, oriented x 3, cooperative Skin Exam: normal color, warm, dry SpO2 Interpretation: normal SpO2: 97 O2 Delivery: Room Air - Course Nursing assessment & vital signs reviewed: Yes - Radiology Exams Shoulder X-ray Interpretation: Interpreted by me (No fractures or dislocations. No soft tissue abnormalities.) Ordered Tests: Active Orders 24 hr Category Date Time Status SHOULDER Stat Exams 01/04/21 21:41 Taken Medication Summary Discontinued Medications Generic Name Dose Route Start Last Admin Trade Name Freq PRN Reason Stop Dose Admin Ketorolac Tromethamine 30 mg 01/04/21 21:10 01/04/21 21:14 Toradol 30 Mg Injection IM 01/04/21 21:11 30 mg STAT ONE Administration Ketorolac Tromethamine Confirm 01/04/21 21:12 Toradol 30 Mg Injection Administered 01/04/21 21:13 Dose 30 mg .ROUTE .STK-MED ONE - Progress Progress: improved Progress Note: 01/04/21 22:07 Patient reassessed. Pain improved with Toradol. I reviewed the x-ray. No obvious fractures or dislocations. No soft tissue abnormalities. Range of motion appears to be normal however patient does have some discomfort during end range of motion. We will place patient in right upper extremity sling. Patient will be referred to orthopedic clinic for further evaluation and treatment. Toradol forwarded the patient's pharmacy for pain control. We will provide patient with a work note. Patient voices no other complaints concerns at this time. He is requesting discharge. Portions of this note were created with voice recognition technology. There may be grammatical, spelling, punctuation or sound alike errors Counseled pt/family regarding: diagnosis, need for follow-up, rad results - Departure Departure Disposition: Home Clinical Impression: Shoulder sprain, Fall Condition: Stable Critical Care Time: No Referrals: LISSETT SEARS MD [Primary Care Provider] - Additional Instructions: Discharge/Care Plan FEI POWELL was seen on 01/04/21 in the Emergency Room. The patient was counseled regarding Diagnosis,Lab results, Imaging studies, need for follow up and when to return to the Emergency Room. Prescriptions given: Discharge Note I have spoken with the patient and/or caregivers. I have explained the patient's condition, diagnosis and treatment plan based on the information available to me at this time. I have answered the patient's and/or caregiver's questions and addressed any concerns. The patient and/or caregivers have as good understanding of the patient's diagnosis, condition and treatment plan as can be expected at this point. The vital signs have been stable. The patient's condition is stable and appropriate for discharge from the emergency department. The patient will pursue further outpatient evaluation with the primary care physician or other designated or consulting physician as outlined in the discharge instructions. The patient and/or caregivers are agreeable to this plan of care and follow-up instructions have been explained in detail. The patient and/or caregivers have received these instruction. The patient/and or caregivers are aware that any significant change in condition or worsening of symptoms should prompt an immediate return to this or the closest emergency department or call 911. Prescriptions: Ketorolac Tromethamine [Toradol] 10 mg PO TID 5 Days #15 tablet Outpatient Orders: Ortho Referral Time Frame: 1 Day, Facility: [facility], Location: [facility]
[2021-01-04 22:06] VITALS: O2SAT 97
--- NOTE | 2021-01-05 08:59 | XRAY ---
Indication: Pain following fall. Comparison: January 05, 2017. 3 view right shoulder limited due to patient body habitus. Grossly stable inferior medial humeral head spurring. No other bony, articular, or soft tissue abnormalities.
== END 2021-01-04 22:17 | disposition home or self-care (01) ==
LOC: ED 20:40
DX: S43.401A Unspecified sprain of right shoulder joint, initial encounter (principal); W07.XXXA Fall from chair, initial encounter
CPT/HCPCS: 73030; 96372; 99284; J1885

== ENCOUNTER 2021-06-19 19:49 | Emergency (ER) | payer OTHER ==
--- NOTE | 2021-06-19 20:09 | ERPHSYRPT ---
- History of Present Illness Time Seen by Provider: 06/19/21 20:09 Source: patient Exam Limitations: no limitations Physician History: This is a 30-year-old white male who has 2 issues, the primary issue is upper lip infection. He has had infected hair follicles in the past. He usually pops the abscess then cleans it well and the infection goes away. However in the last couple days he is done this several times it is not gone away. He did get pus out but yesterday and today there was only serosanguineous fluid. However, today he noticed the upper lip and lower cheeks were swollen. He has no stridor. He has had some chills as well and he was concerned that maybe there was an internal infection. He wanted to be placed on some antibiotics. The second issue is this patient has chronic sciatica and sees Dr. Dorado, the pain specialist for this issue. He was supposed to get a refill on his oxycodone medication and he has not done so. His last phone call them was approximately 2 to 3 weeks ago and they have not called the prescription in. Patient states that he has cyclobenzaprine, muscle relaxant prescription at home. Timing/Duration: day(s) (Several days) Fever Severity: mild Associated Symptoms: denies symptoms Allergies/Adverse Reactions: egg Allergy (Verified 06/19/21 20:09) Horse/Equine Containing Products Allergy (Verified 06/19/21 20:09) nylon Allergy (Verified 06/19/21 20:09) Blisters Home Medications: Albuterol 2.5 mg/0.5 ml [PROVENTIL Solution 2.5 MG/0.5 ML] 1 neb IH Q4H PRN PRN 05/03/14 [History] Fluticasone Propionate [Flonase NASAL] 2 inh NS DAILY 08/06/18 [History] Albuterol Sulfate [Albuterol Sulfate Hfa] 1 inh PO UD 07/09/19 [History] Budesonide/Formoterol Fumarate [Budesonide-Formoterol 160-4.5] 1 inh PO BID 07/09/19 [History] Tiotropium Gibbs [Spiriva Respimat] 2 inh PO DAILY 07/09/19 [History] Hx Tetanus, Diphtheria Vaccination/Date Given: Yes Hx Influenza Vaccination/Date Given: No Hx Pneumococcal Vaccination/Date Given: No Travel Risk - International Travel Have you traveled outside of the country in past 3 weeks: No - Coronavirus Screening Are you exhibiting any of the following symptoms?: Yes Symptoms: Fever Close contact with a COVID-19 positive Pt in past 14-21 Days: No - Vaccine Status Have you recieved a Covid-19 vaccination: No - Review of Systems Constitutional: Fever (Low-grade) Eyes: No Symptoms Ears, Nose, & Throat: Other (: Upper lip) Respiratory: No Symptoms Cardiac: No Symptoms Abdominal/Gastrointestinal: No Symptoms Genitourinary Symptoms: No Symptoms Musculoskeletal: No Symptoms Skin: Other (: Upper lip) Neurological: No Symptoms Psychological: No Symptoms Endocrine: No Symptoms Hematologic/Lymphatic: No Symptoms Immunological/Allergic: No Symptoms All Other Systems: Reviewed and Negative - Past Medical History Pertinent Past Medical History: Yes Neurological History: No Pertinent History ENT History: No Pertinent History, Other Cardiac History: Other Respiratory History: Asthma, Other Endocrine Medical History: No Pertinent History Musculoskeletal History: Fractures GI Medical History: No Pertinent History History: No Pertinent History Psycho-Social History: Depression Male Reproductive Disorders: No Pertinent History Other Medical History: HAD COVID THIS PAST YEAR AND REPORTS NO CHANGE IN ASTHMA/RESPIRATORY ISSUES. HX OF HEART MURMUR. SX HX: RIGHT SHOULDER ROTATOR CUFF AND LABRAL REPAIR 2008, SINUS SURGERY 2006:PTSD - Past Surgical History Past Surgical History: Yes Neuro Surgical History: No Pertinent History Cardiac: No Pertinent History Respiratory: No Pertinent History Gastrointestinal: No Pertinent History Genitourinary: No Pertinent History Musculoskeletal: No Pertinent History Male Surgical History: Testicular Surgery Other Surgical History: SHOULDER/NOSE - Social History Smoking Status: Never smoker Exposure to second hand smoke: Yes Drug Use: none Patient Lives Alone: No - Nursing Vital Signs Nursing Vital Signs: Initial Vital Signs Temperature 99.9 F 06/19/21 19:49 Pulse Rate 104 H 06/19/21 19:49 Respiratory Rate 18 06/19/21 19:49 Blood Pressure 168/94 06/19/21 19:49 O2 Sat by Pulse Oximetry 97 06/19/21 19:49 Pain Scale Pain Intensity 6 - Physical Exam General Appearance: no apparent distress, alert, anxiety, obese Eye Exam: PERRL/EOMI, eyes nml inspection ENT Exam: airway intact (Swollen upper lip with folliculitis. No abscess. There is induration present in his upper lip.) Neck Exam: normal inspection, non-tender, supple, full range of motion Respiratory Exam: chest non-tender, no respiratory distress Gastrointestinal/Abdominal Exam: non tender Rectal Exam: not done Extremity Exam: non-tender, normal range of motion, normal inspection Neurologic Exam: alert, oriented x 3, cooperative, honey extractor II-XII nml as tested, normal mood/affect, nml cerebellar function, nml station & gait, sensation nml Skin Exam: other (Folliculitis upper lip swelling present. No abscess expressible. Indurated tissue present) Lymphatic: No adenopathy SpO2 Interpretation: normal O2 Delivery: Room Air - Course Nursing assessment & vital signs reviewed: Yes Ordered Tests: Medication Summary Discontinued Medications Generic Name Dose Route Start Last Admin Trade Name Freq PRN Reason Stop Dose Admin Ceftriaxone Sodium 1,000 mg 06/19/21 20:34 06/19/21 20:48 Ceftriaxone Sodium 1000 Mg Inj Vial IM 06/19/21 20:35 1,000 mg STAT ONE Administration Ceftriaxone Sodium Confirm 06/19/21 20:39 Ceftriaxone Sodium 1000 Mg Inj Vial Administered 06/19/21 20:40 Dose 1,000 mg .ROUTE .STK-MED ONE Methylprednisolone Sodium 0 mg 06/19/21 20:34 06/19/21 20:49 Succinate 125 mg/ Sterile IM 06/19/21 20:35 125 mg Water 2 ml STAT ONE Administration Lidocaine HCl Confirm 06/19/21 20:39 Lidocaine Hcl 2% 20 Ml Mdv Administered 06/19/21 20:40 Dose 1 ml .ROUTE .STK-MED ONE Methylprednisolone Sodium Succinate Confirm 06/19/21 20:39 Methylprednis Sod Succ 125 Mg/2 Ml Vial Administered 06/19/21 20:40 Dose 125 mg .ROUTE .STK-MED ONE Sterile Water Confirm 06/19/21 20:39 Water For Injection,Sterile 10 Ml Vial Administered 06/19/21 20:40 Dose 10 ml IJ .STK-MED ONE - Progress Progress: unchanged, pain not gone completely Counseled pt/family regarding: diagnosis, need for follow-up - Departure Departure Disposition: Home Clinical Impression: Folliculitis barbae, Sciatica Condition: Stable Critical Care Time: No Referrals: LISSETT SEARS MD [Primary Care Provider] - Follow up/PCP as directed Additional Instructions: Shave your mustache off and remove all hair from this area. Scrub the site twice a day with soap and water. Do not use any lotions ointments or creams to the site. Take your antibiotics as prescribed. Call your pain specialist tomorrow for further management of your sciatica. Return to the emergency department tomorrow for reassessment of the folliculitis site. Prescriptions: Smz/Tmp Ds Tablet [Bactrim Ds Tablet] 1 udtab PO BID #14 tablet Prednisone 10 mg [Deltasone 10 mg] 10 mg PO TID #12 tablet
[2021-06-19] MEDS ORDERED: Rocephin 1000 MG INJ IM ONE (20:34)
[2021-06-19] MEDS ORDERED: solu-MEDROL 125 MG, Sterile H2O 10 ml 2 ML IM ONE ×2 (20:34)
[2021-06-19] MEDS ORDERED: Sterile H2O 10 ml IJ ONE (20:39)
[2021-06-19] MEDS ORDERED: solu-MEDROL ONE (20:39)
[2021-06-19] MEDS ORDERED: Rocephin 1000 MG INJ ONE (20:39)
[2021-06-19] MEDS ORDERED: XYLOCAINE 2% HCL 20 ML MDV ONE (20:39)
[2021-06-19 21:09] VITALS: BP 161/95; PULSE 95; O2SAT 100
[2021-06-19] MEDS ORDERED: PERCOCET TABLET 5/325MG PO STA (21:13)
[2021-06-19] MEDS ORDERED: PERCOCET TABLET 5/325MG ONE ×2 (21:14)
== END 2021-06-19 21:19 | disposition home or self-care (01) ==
LOC: ED 19:49
DX: L73.8 Other specified follicular disorders (principal); M54.30 Sciatica, unspecified side; R60.0 Localized edema; Z86.16 Personal history of COVID-19; Z79.52 Long term (current) use of systemic steroids; Z79.899 Other long term (current) drug therapy
CPT/HCPCS: 96372; 99284; J0696; J2930; A9270-GY